=== PATIENT | female | born 1990 | race Two or more races ===

== ENCOUNTER 2023-04-23 22:10 | Emergency (ER) | payer SELFPAY ==
[~2023-04-23] VITALS: Ht 165.1 cm; Wt 99.3 kg
[2023-04-23 22:23] VITALS: BP 128/80
[2023-04-23 23:08] LABS: Urine Bacteria NONE SEEN /hpf (None Seen); Urine Blood TRACE /uL (Negative); Urine Specific Gravity 1.027 (1.001-1.035); Urine WBC 8 /hpf (0 - 5)
[2023-04-24] MEDS ORDERED: KETOROLAC TROMETH 30 MG/ML 1ML VIAL IM ONE
[2023-04-27] MEDS ORDERED: TRAM50TA2 PO (20:18)
== END 2023-04-24 01:35 | disposition home or self-care (01) ==
LOC: ER 22:10
DX: R51.9 Headache, unspecified (principal)
CPT/HCPCS: 70450; 81001; 81025; 96372; 99285; J1885

== ENCOUNTER 2023-04-26 18:44 | Emergency (ER) | payer MEDICAID, OTHER ==
[~2023-04-26] VITALS: Ht 165.1 cm; Wt 99.0 kg
[2023-04-26 20:54] VITALS: BP 140/89
[2023-04-26] MEDS ORDERED: ZOFR4T PO (21:26)
[2023-04-26] MEDS ORDERED: ACE3T PO (21:26)
[2023-04-26] MEDS ORDERED: KETOROLAC TROMETH 60MG/2ML VIAL IM ONE (21:30)
[2023-04-27] MEDS ORDERED: TRAM50TA2 PO (20:18)
== END 2023-04-26 21:53 | disposition home or self-care (01) ==
LOC: ER 18:44
DX: G43.909 Migraine, unspecified, not intractable, without status migrainosus (principal)
CPT/HCPCS: 81002; 81025; 96372; 99283; J1885

== ENCOUNTER 2024-02-15 21:34 | Emergency (ER) | payer MEDICAID ==
[~2024-02-15] VITALS: Ht 165.1 cm; Wt 110.0 kg
[2024-02-15 21:34] VITALS: BP 124/76; PULSE 96; RESP 20; O2SAT 96
[~2024-02-15 21:34] MED LIST: TRAM50TA2 PO; ZOFR4T PO
[2024-02-16] MEDS: KETOROLAC TROMETH 30 MG/ML 1ML VIAL IM ONE (00:30)
[2024-02-16] MEDS: BENZOCAINE (DENTAL) 20 % SPRAY 60ML MT ONE (00:35)
[2024-02-16] MEDS ORDERED: IBUP-1455 PO (00:44)
== END 2024-02-16 00:54 | disposition home or self-care (01) ==
LOC: ER 21:34
DX: K02.9 Dental caries, unspecified (principal)
CPT/HCPCS: 96372; 99283; J1885

== ENCOUNTER 2024-05-19 19:34 | Emergency (ER) | payer SELFPAY ==
[~2024-05-19] VITALS: Ht 165.1 cm; Wt 110.0 kg
[~2024-05-19 19:34] MED LIST changes: +IBUP-1455 PO
[2024-05-19 20:57] LABS: Urine Bacteria None Seen /hpf (None Seen)
[2024-05-19 21:02] LABS: Urine Blood Negative /uL (Negative); Urine Clarity Clear (Clear); Urine Color Yellow (Yellow); Urine Mucus FEW (None Seen); Urine Protein, UAD Negative (Negative); Urine Specific Gravity 1.031 (1.001-1.035); Urine Urobilinogen Normal (Negative); Urine WBC 18 /hpf (0 - 5)
[2024-05-19] MEDS ORDERED: CIPR-173 PO (21:32)
[2024-05-19 21:49] VITALS: BP 136/89; PULSE 93; RESP 18; TEMP 99; O2SAT 98
== END 2024-05-19 21:52 | disposition home or self-care (01) ==
LOC: ER 19:34
DX: N39.0 Urinary tract infection, site not specified (principal); Z79.899 Other long term (current) drug therapy; Z79.1 Long term (current) use of non-steroidal anti-inflammatories (NSAID)
CPT/HCPCS: 81001; 81025

== ENCOUNTER 2024-09-03 18:55 | Emergency (ER) | payer SELFPAY ==
[~2024-09-03] VITALS: Ht 165.1 cm; Wt 109.6 kg
[~2024-09-03 18:55] MED LIST changes: +CIPR-173 PO
[2024-09-03 19:31] LABS: Urine Bacteria None Seen /hpf (None Seen)
[2024-09-03 19:48] LABS: Urine Blood 1+ /uL (Negative); Urine Clarity Turbid (Clear); Urine Color Light-Yellow (Yellow); Urine Protein, UAD TRACE (Negative); Urine Specific Gravity 1.031 (1.001-1.035); Urine Urobilinogen 2 mg/dL (Negative); Urine WBC 42 /hpf (0 - 5)
[2024-09-03 20:02] LABS: Basophils # (auto) 0.1 10 ^3/uL (0-0.2); Basophils % (auto) 0.5 % (0.0-2.0); Eosinophils # (auto) 0.2 10 ^3/uL (0-0.8); Eosinophils % (auto) 2.4 % (0.0-7.0); Hematocrit 39.6 % (36.0-46.0); Lymphocytes # (auto) 2.9 10 ^3/uL (0.4-5.4); Lymphocytes % (auto) 29.3 % (10.0-50.0); Mean Corpuscular Hemoglobin 31.9 pg (28.0-32.0); Mean Corpuscular Hgb Conc. 35.3 g/dL (32.0-36.0); Mean Corpuscular Volume 90.4 fL (80.0-100.0); Monocytes # (auto) 0.6 10 ^3/uL (0-1.3); Monocytes % (auto) 6.2 % (0.0-12.0); Neutrophils % (auto) 61.6 % (37.0-80.0); Nucleated Red Blood Cells % 0.1 %; Platelet Count (auto) 297 10^3/uL (140-450); Red Blood Cells 4.39 10^6/uL (4.0-5.20); Red Cell Distribution Width 12.5 % (11.8-14.3); White Blood Cell 9.7 10^3/uL (4.4-10.8)
[2024-09-03 20:14] LABS: Chloride 106 mmol/L (98-107); Potassium 3.5 mmol/L (3.5-5.1); Sodium 140 mmol/L (136-145)
[2024-09-03 20:15] LABS: Anion Gap 8 (5-15); Carbon Dioxide 26 mmol/L (20-31)
[2024-09-03 20:18] LABS: INR 0.97 (0.9-1.15); Partial Thromboplastin Time 27.5 SEC (24.5-34.5); Prothrombin Time 10.3 sec (9.3-11.8)
[2024-09-03 20:20] LABS: BUN/Creatinine Ratio 15.5 (10.0-20.0); Blood Urea Nitrogen 9 mg/dL (9-23); Glucose 218 mg/dL (74-106)
--- NOTE | 2024-09-03 21:23 | DVH ---
Procedure: US OB ULTRASOUND COMP LESS 14WKS Study Date and Requested Time: 09/03/2024 08:27 PM Study Description: US OB ULTRASOUND COMP LESS 14WKS History: SPOTTING Comparison: None Technique: Multiple high resolution amaral-scale images obtained of the uterus, fetus, and other gestat ional components with M-mode scanning for evaluation of heart rate. Findings: No intrauterine is noted. Thickened endometrium at 20 mm. Uterus measures 9.7 x 7.3 x 5.1 cm in size with a suggested 1.1 cm fibroid. Cervical os appears close d. 0.2 cm nabothian cyst is noted Right ovary measures 2.9 x 1.8 x 2.6 cm with a 1.1 cm dominant follicle/ cyst. Left ovary measures 2. 5 x 2.1 x 2.5 cm with a 1.9 x 1.6 x 1.9 cm hypoechoic area with peripheral vascularity. Normal ovaria n color Doppler flow bilaterally. No evidence of free fluid in the cul-de-sac. Impression: No intrauterine is noted. An ectopic can not be excluded. Recommend correlation with beta hCG and ultrasound as clinically indicated. 1.9 x 1.6 x 1.9 cm left ovarian hypoechoic area with peripheral vascularity which may represent a cor pus luteal cyst with an ectopic not completely excluded. Thickened endometrium at 20 mm.
--- NOTE | 2024-09-03 21:39 | ED.PDOC ---
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 Pt began to notice pink vaginal spotting this morning and she is also experiencing suprapubic cramping. Pt took test at home on 08/25/2024 and result was positive. Pt states she is approximately 4wks with LMP 07/31/2024. . No known allergies. No fever, nausea, vomiting or abnormal discharge. Chief Complaint: Vaginal Discharge Time Seen by MD: 21:25 Reviewed Notes: Medications, Allergies Allergies: Coded Allergies: NO KNOWN ALLERGIES (Unverified , 04/23/23) Home Meds Active Scripts Ciprofloxacin Hcl (Cipro) 500 Mg Tab, 1 TAB PO BID, #14 TAB Prov:CECILIA EDGAR MD 05/19/24 Ibuprofen Micronized (Ibuprofen) 800 Mg Tab, 800 MG PO TIDPRN PRN, #20 TAB Prov:CRISTINA HOLLINS 02/16/24 Tramadol Hcl (Tramadol Hcl) 50 Mg Tab, 50 MG PO Q6HPRN, #8 TAB 0 Refills Prov:REYES RODRIGES 04/27/23 Ondansetron Odt 4MG Tab (ZOFRAN PO) 4 Mg Tb, 4 MG PO Q8HPRN, #14 TAB 0 Refills ODT TAB-DISSOLVE IN MOUTH, THEN SWALLOW Prov:REYES RODRIGES 04/26/23 Information Source: Patient Mode of Arrival: Ambulatory Timing: Hours Severity: Mild Vaginal Discharge: None Vaginal Lesions: None Bleeding Quality: Bright Red (pink) Vaginal Mass: None Onset Of Mass/Bleeding: Spontaneous Sexual Activity: Last Consensual [place]: Unknown Control: None History of: Current Blood Type: Unknown Symptoms of Possible : Missed Period Associated Signs and Symptoms: Vaginal Bleeding, Cramping Past Medical History PAST MEDICAL HISTORY: UTI'S Past Medical History (Other): Ectopic Surgical History: Denies all surgeries 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 , 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 Family History Family History: Reviewed,noncontributory to illness, No family hx of Cancer, No family hx of DM, No family hx of Heart deanne, No family hx of HTN, No family hx ofKidney deanne, No family hx of Liver deanne, No family hx of Lung deanne, No family hx of Stroke Social History Smoker: Non-Smoker Alcohol: Denies ETOH Use Drugs: Denies Drug Use Lives In: Home Constitutional: denies: chills, diaphoresis, fatigue, fever, malaise, sweats, weakness, others EENTM: denies: blurred vision, double vision, ear bleeding, ear discharge, ear drainage, ear pain, ear ringing, eye pain, eye redness, hearing loss, mouth pain, mouth swelling, nasal discharge, nose bleeding, nose congestion, nose pain, photophobia, tearing, throat pain, throat swelling, voice changes, others Respiratory: denies: cough, hemoptysis, orthopnea, SOB at rest, shortness of breath, SOB with excertion, stridor, wheezing, others Cardiovascular: denies: chest pain, dizzy spells, diaphoresis, Dyspnea on exertion, edema, irregular heart beat, left arm pain, lightheadedness, palpitations, PND, syncope, others Gastrointestinal: denies: abdomen distended, abdominal pain, blood streaked bowels, constipated, diarrhea, dysphagia, difficulty swallowing, hematemesis, melena, nausea, poor appetite, poor fluid intake, rectal bleeding, rectal pain, vomiting, others Genitourinary: reports: abnormal vagina bleeding, pain (suprapubic), ; denies: burning, dyspareunia, dysuria, flank pain, frequency, hematuria, incontinence, vagina discharge, urgency, others Neurological: denies: dizziness, fainting, headache, left sided numbness, left sided weakness, numbness, paresthesia, pre-existing deficit, right sided numbness, right sided weakness, seizure, speech problems, tingling, tremors, weakness, others Musculoskeletal: denies: back pain, gout, joint pain, joint swelling, muscle pain, muscle stiffness, neck pain, others Integumetry: denies: bruises, change in color, change in hair/nails, dryness, laceration, lesions, lumps, rash, wounds, others Allergic/Immunocompromised: denies: Difficulty Healing, Frequent Infections, Hives, Itching, others Hematologic/Lymphatic: denies: anemia, blood clots, easy bleeding, easy bruising, swollen glands, others Endocrine: denies: excessive hunger, excessive sweating, excessive thirst, excessive urination, flushing, intolerance to cold, intolerance to heat, unexplained weight gain, unexplained weight loss, others Psychiatric: denies: anxiety, bipolar disorder, depression, hopeless, panic disorder, schizophrenia, sleepless, suicidal, others All Other Systems: Reviewed and Negative Physical Exam General Appearance: No Apparent Distress HEENT: Normal ENT Inspection Neck: Full Range of Motion, Normal Inspection Respiratory: Lungs Clear, No Accessory Muscle Use, No Respiratory Distress, Normal Breath Sounds Cardiovascular: No Edema, No JVD, Regular Rate/Rhythm Breast Exam: Deferred Gastrointestinal: Soft, Suprapubic, Tenderness (mild. No rebound/guarding.) Genitalia: Deferred Pelvic: Deferred Rectal: Deferred Extremities: Normal inspection, Normal range of motion, Non-tender, No pedal edema Neurologic: Alert, No Motor Deficits, Normal Affect, Normal Mood, No Sensory Deficits Cerebellar Function: NOT DONE Reflexes: NOT DONE Skin: Dry, Normal Color, Warm Lymphatic: NOT DONE Was a procedure done? Was a procedure done?: No Differential Diagnosis (BARKING MACHINE FEEDER) Vaginal Bleeding: - Complete, - Incomplete, - In evitable, - Missed, - Threatened, Ectopic Mass / Lesion: PID Vaginal Discharge: UTI X-Ray, Labs, Meds, VS Vital Signs Date Time Temp Pulse Resp B/P (MAP) Pulse Ox O2 Delivery O2 Flow Rate FiO2 09/03/24 19:10 98.6 92 16 137/81 (99) 97 Lab Test 09/03/24 19:45 09/03/24 00:00 Range/Units White Blood Count 9.7 4.4-10.8 10^3/uL Red Blood Count 4.39 4.0-5.20 10^6/uL Hemoglobin 14.0 12.2-16.2 g/dL Hematocrit 39.6 36.0-46.0 % Mean Corpuscular Volume 90.4 80.0-100.0 fL Mean Corpuscular Hemoglobin 31.9 28.0-32.0 pg Mean Corpuscular Hemoglobin Concent 35.3 32.0-36.0 g/dL Red Cell Distribution Width 12.5 11.8-14.3 % Platelet Count 297 140-450 10^3/uL Mean Platelet Volume 8.5 6.9-10.8 fL Neutrophils (%) (Auto) 61.6 37.0-80.0 % Lymphocytes (%) (Auto) 29.3 10.0-50.0 % Monocytes (%) (Auto) 6.2 0.0-12.0 % Eosinophils (%) (Auto) 2.4 0.0-7.0 % Basophils (%) (Auto) 0.5 0.0-2.0 % Neutrophils # (Auto) 6.0 1.6-8.6 10 ^3/uL Lymphocytes # (Auto) 2.9 0.4-5.4 10 ^3/uL Monocytes # (Auto) 0.6 0-1.3 10 ^3/uL Eosinophils # (Auto) 0.2 0-0.8 10 ^3/uL Basophils # (Auto) 0.1 0-0.2 10 ^3/uL Nucleated Red Blood Cells 0.1 % Prothrombin Time 10.3 9.3-11.8 sec Prothrombin Time INR 0.97 0.9-1.15 Activated Partial Thromboplast Time 27.5 24.5-34.5 SEC Sodium Level 140 136-145 mmol/L Potassium Level 3.5 3.5-5.1 mmol/L Chloride Level 106 98-107 mmol/L Carbon Dioxide Level 26 20-31 mmol/L Anion Gap 8 5-15 Blood Urea Nitrogen 9 9-23 mg/dL Creatinine 0.58 0.550-1.02 mg/dL Glomerular Filtration Rate Calc 124 >90 mL/min BUN/Creatinine Ratio 15.5 10.0-20.0 Serum Glucose 218 H 74-106 mg/dL Calcium Level 10.0 8.7-10.4 mg/dL Beta HCG, Quantitative 48.9 H 1.5-4.2 mIU/mL Urine Color Light-yellow Yellow Urine Clarity Turbid H Clear Urine pH 7.0 5.0-9.0 Urine Specific [place]ott 1.031 1.001-1.035 Urine Protein Trace H Negative Urine Ketones Trace Negative Urine Blood 1+ H Negative /uL Urine Nitrite Negative Negative Urine Bilirubin Negative Negative Urine Urobilinogen 2 H Negative mg/dL Urine Leukocyte Esterase 3+ Negative /uL Urine RBC 21 0 - 4 /hpf Urine WBC 42 0 - 5 /hpf Urine Squamous Epithelial Cells Mod <5 /hpf Urine Bacteria None seen None Seen /hpf Urine Glucose 4+ H Normal mg/dL PROCEDURE(s): OB4US - OB ULTRASOUND COMP LESS 14WKS REASON: SPOTTING ORDER NUMBER(s): [id number], ACCESSION NUMBER(s): [id number] Procedure: US OB ULTRASOUND COMP LESS 14WKS Study Date and Requested Time: 09/03/2024 08:27 PM Study Description: US OB ULTRASOUND COMP LESS 14WKS History: SPOTTING Comparison: None Technique: Multiple high resolution amraal-scale images obtained of the uterus, fetus, and other gestational components with M-mode scanning for evaluation of heart rate. Findings: No intrauterine is noted. Thickened endometrium at 20 mm. Uterus measures 9.7 x 7.3 x 5.1 cm in size with a suggested 1.1 cm fibroid. Cervical os appears closed. 0.2 cm nabothian cyst is noted Right ovary measures 2.9 x 1.8 x 2.6 cm with a 1.1 cm dominant follicle/ cyst. Left ovary measures 2.5 x 2.1 x 2.5 cm with a 1.9 x 1.6 x 1.9 cm hypoechoic area with peripheral vascularity. Normal ovarian color Doppler flow bilaterally. No evidence of free fluid in the cul-de-sac. Impression: No intrauterine is noted. An ectopic can not be excluded. Recommend correlation with beta hCG and ultrasound as clinically indicated. 1.9 x 1.6 x 1.9 cm left ovarian hypoechoic area with peripheral vascularity which may represent a corpus luteal cyst with an ectopic not completely excluded. Thickened endometrium at 20 mm. X-Ray, Labs, Meds, VS Comment 33-year-old female G4, P1 with prior history of ectopic and miscarriage, currently approximately 4 weeks complaining of vaginal spotting and suprapubic cramping. Vitals unremarkable Exam remarkable for mild suprapubic tenderness to palpation. Nontender to percussion. No rebound or guarding. Ob ultrasound: Impression: No intrauterine is noted. An ectopic can not be excluded. Recommend correlation with beta hCG and ultrasound as clinically indicated. 1.9 x 1.6 x 1.9 cm left ovarian hypoechoic area with peripheral vascularity which may represent a corpus luteal cyst with an ectopic not completely excluded. Thickened endometrium at 20 mm. CBC unremarkable, basic metabolic panel remarkable for glucose 218, no other abnormalities of acute significance Serum quantitative hCG 48.9 UA abnormal consistent with UTI Patient treated with the following in the ED: Rocephin 1 g IM, Tylenol 1 g p.o. On re-evaluation exam is essentially unchanged. No acute hemorrhage. Hemodynamically stable. Vitals unremarkable. Hospitalization was considered, however the patient was well-appearing, hemodynamically stable and does not show any peritoneal signs. Patient appears stable for close outpatient follow-up with OBGYN for repeat serum quantitative hCG and repeat ultrasound. Patient will be referred to Dr. Pacheco. Rx Tylenol, Keflex Time of 1ST Reevaluation: 21:55 Reevaluation 1ST: Unchanged Time of 2ND Reevaluation: 22:02 Reevaluation 2ND: Improved Patient Education/Counseling: Diagnosis, Treatment Family Education/Counseling: No Family Present Departure 1 Departure Time of Disposition: 22:02 Impression: Primary Impression: Vaginal bleeding affecting early Disposition: 01 HOME / SELF CARE / HOMELESS Condition: Stable Referrals: JEREMY GANDHI DO Additional Instructions: Blood tests were essentially unremarkable. Your urine test showed you have a urinary tract infection. I have prescribed antibiotics and pain medication. Your serum quantitative hCG ( hormone level) was 48.9. Your ultrasound report is below. At this stage, it is too early to determine whether this is a normal early , and ectopic or a miscarriage. Follow-up with Dr. Gandhi (bag bleacher) in 1-2 days for repeat blood tests and ultrasound and further evaluation. Return immediately to ER for worsening pain, heavy bleeding, fever, vomiting or any other concern. [place] [id number] Ph: [phone] DIAGNOSTIC IMAGING Diagnostic Imaging Report : [id number] Signed PATIENT: PAULIE LUCIA ACCT: [id number] UNIT: [id number] : 1990 LOC: ER ROOM / BED: / AGE / SEX: 33 / F ADM STATUS: REG ER SERVICE 28 ORDERING PHYSICIAN: PATEL WADE MD PROCEDURE(s): OB4US - OB ULTRASOUND COMP LESS 14WKS REASON: SPOTTING ORDER NUMBER(s): [id number], ACCESSION NUMBER(s): [id number] Procedure: US OB ULTRASOUND COMP LESS 14WKS Study Date and Requested Time: 09/03/2024 08:27 PM Study Description: US OB ULTRASOUND COMP LESS 14WKS History: SPOTTING Comparison: None Technique: Multiple high resolution amaral-scale images obtained of the uterus, fetus, and other gestational components with M-mode scanning for evaluation of heart rate. Findings: No intrauterine is noted. Thickened endometrium at 20 mm. Uterus measures 9.7 x 7.3 x 5.1 cm in size with a suggested 1.1 cm fibroid. Cervical os appears closed. 0.2 cm nabothian cyst is noted Right ovary measures 2.9 x 1.8 x 2.6 cm with a 1.1 cm dominant follicle/ cyst. Left ovary measures 2.5 x 2.1 x 2.5 cm with a 1.9 x 1.6 x 1.9 cm hypoechoic area with peripheral vascularity. Normal ovarian color Doppler flow bilaterally. No evidence of free fluid in the cul-de-sac. Impression: No intrauterine is noted. An ectopic can not be excluded. Recommend correlation with beta hCG and ultrasound as clinically indicated. 1.9 x 1.6 x 1.9 cm left ovarian hypoechoic area with peripheral vascularity which may represent a corpus luteal cyst with an ectopic not completely excluded. Thickened endometrium at 20 mm. ATED BY: TARA YARBROUGH DO DICTATED DATE/TIME: 09/03/242119 SIGNED BY: TARA YARBROUGH DO SIGNED DATE/TIME: 09/03/242119 CC: e-Prescriptions Acetaminophen (Tylenol Extra Strength) 500 Mg Tab 1000 MG PO Q6HP PRN, #30 TAB Prov: PATEL WADE MD 09/03/24 Cephalexin Monohydrate (Cephalexin) 500 Mg Cap 1 CAP PO QID for 10 Days, #40 CAP Prov: PATEL WADE MD 09/03/24 Discharged With: Relative Critical Care Note Critical Care Time?: No Stability Stability form required: No Heart Score Heart Score: Heart Score Response (Comments) Value History N/A 0 EKG N/A 0 Age N/A 0 Risk Factors N/A 0 Troponin N/A 0 Total 0 I personally scribed for PATEL WADE MD ([email or web address]) on 09/03/24 at 21:39. Electronically submitted by Gail Mahan ([email or web address]). PATEL WADE MD Sep 03, 2024 21:39
[2024-09-03] MEDS ORDERED: ACET-1304 PO (22:07)
[2024-09-03] MEDS ORDERED: CEPH500C PO (22:07)
[2024-09-03 22:25] VITALS: BP 136/80; PULSE 78; RESP 18; TEMP 98.1; O2SAT 98
[2024-09-03] MEDS: ACETAMINOPHEN 500 MG TAB PO ONE (22:26)
[2024-09-03] MEDS: cefTRIAXone SOD 1,000 MG VL IM ONE (22:27)
== END 2024-09-03 22:33 | disposition home or self-care (01) ==
LOC: ER 18:55
DX: O20.9 Hemorrhage in early pregnancy, unspecified (principal); R10.2 Pelvic and perineal pain; O26.891 Other specified pregnancy related conditions, first trimester; Z3A.01 Less than 8 weeks gestation of pregnancy; Z87.440 Personal history of urinary (tract) infections; Z79.899 Other long term (current) drug therapy
CPT/HCPCS: 36415; 76801; 76817; 80048; 81001; 84702; 85025; 85610; 85730; 96372; 99285; J0696

== ENCOUNTER 2024-09-06 19:52 | Emergency (ER) | payer SELFPAY ==
[~2024-09-06] VITALS: Ht 165.1 cm; Wt 107.2 kg
[~2024-09-06 19:52] MED LIST changes: +ACET-1304 PO; +CEPH500C PO
[2024-09-06 20:20] VITALS: BP 118/85; PULSE 79; RESP 16; O2SAT 98
[2024-09-06 20:36] LABS: Urine Bacteria None Seen /hpf (None Seen)
[2024-09-06 21:01] LABS: Chloride 107 mmol/L (98-107); Potassium 3.5 mmol/L (3.5-5.1); Sodium 140 mmol/L (136-145)
[2024-09-06 21:02] LABS: Anion Gap 7 (5-15); Basophils # (auto) 0.1 10 ^3/uL (0-0.2); Basophils % (auto) 0.5 % (0.0-2.0); Carbon Dioxide 26 mmol/L (20-31); Eosinophils # (auto) 0.3 10 ^3/uL (0-0.8); Eosinophils % (auto) 2.3 % (0.0-7.0); Hematocrit 41.3 % (36.0-46.0); Hemoglobin 14.2 g/dL (12.2-16.2); Lymphocytes # (auto) 3.1 10 ^3/uL (0.4-5.4); Lymphocytes % (auto) 28.6 % (10.0-50.0); Mean Corpuscular Hemoglobin 31.2 pg (28.0-32.0); Mean Corpuscular Hgb Conc. 34.4 g/dL (32.0-36.0); Mean Corpuscular Volume 90.5 fL (80.0-100.0); Monocytes # (auto) 0.5 10 ^3/uL (0-1.3); Monocytes % (auto) 4.6 % (0.0-12.0); Nucleated Red Blood Cells % 0.2 %; Platelet Count (auto) 306 10^3/uL (140-450); Red Blood Cells 4.57 10^6/uL (4.0-5.20); Red Cell Distribution Width 12.4 % (11.8-14.3); White Blood Cell 10.9 10^3/uL (4.4-10.8)
[2024-09-06 21:03] LABS: Calcium 10.1 mg/dL (8.7-10.4)
[2024-09-06 21:07] LABS: BUN/Creatinine Ratio 15.2 (10.0-20.0); Blood Urea Nitrogen 10 mg/dL (9-23); Glucose 162 mg/dL (74-106)
--- NOTE | 2024-09-06 21:44 | ED.PDOC ---
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 Patient reports she is approximately 4 weeks , A2 and reports she was seen in ER here 3 days ago due to vaginal bleeding affecting early and was discharged home but states today her vaginal bleeding got worse with associated clots prompting her to come back to ER for further evaluation. Notes she currently is taking Keflex antibiotics for a UTI and has been taking Tylenol for her pain with slight relief. Reports she currently experiencing 8/10 pelvic cramping pain and presents to ER ambulatory on arrival, with steady gait, in no distress with vitals stable. States she does have history of one ectopic preg katia. Denies fever, body aches, chills, shortness of breath, chest pain, palpitations, abdominal pain, back/flank pain, dysuria or any further symptoms/complaints Chief Complaint: Vaginal Bleed Time Seen by MD: 19:55 Primary Care Provider: UNKNOWN Reviewed Notes: Nurses Notes, Medications, Allergies Allergies: Coded Allergies: NO KNOWN ALLERGIES (Unverified , 04/23/23) Home Meds Active Scripts Acetaminophen (Tylenol Extra Strength) 500 Mg Tab, 1000 MG PO Q6HP PRN, #30 TAB Prov:PATEL WADE MD 09/03/24 Cephalexin Monohydrate (Cephalexin) 500 Mg Cap, 1 CAP PO QID for 10 Days, #40 CAP Prov:PATEL WADE MD 09/03/24 Ciprofloxacin Hcl (Cipro) 500 Mg Tab, 1 TAB PO BID, #14 TAB Prov:CECILIA EDGAR MD 05/19/24 Ibuprofen Micronized (Ibuprofen) 800 Mg Tab, 800 MG PO TIDPRN PRN, #20 TAB Prov:CRISTINA HOLLINS 02/16/24 Tramadol Hcl (Tramadol Hcl) 50 Mg Tab, 50 MG PO Q6HPRN, #8 TAB 0 Refills Prov:REYES RODRIGES 04/27/23 Ondansetron Odt 4MG Tab (ZOFRAN PO) 4 Mg Tb, 4 MG PO Q8HPRN, #14 TAB 0 Refills ODT TAB-DISSOLVE IN MOUTH, THEN SWALLOW Prov:REYES RODRIGES 04/26/23 Information Source: Patient Past Medical History PAST MEDICAL HISTORY: UTI'S Surgical History (Other): D&C 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 , 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 Family History Family History: Unknown Social History Smoker: Non-Smoker Alcohol: Denies ETOH Use Drugs: Denies Drug Use Lives In: Home Constitutional: denies: chills, diaphoresis, fatigue, fever, malaise, sweats, weakness, others EENTM: denies: blurred vision, double vision, ear bleeding, ear discharge, ear drainage, ear pain, ear ringing, eye pain, eye redness, hearing loss, mouth pain, mouth swelling, nasal discharge, nose bleeding, nose congestion, nose pain, photophobia, tearing, throat pain, throat swelling, voice changes, others Respiratory: denies: cough, hemoptysis, orthopnea, SOB at rest, shortness of breath, SOB with excertion, stridor, wheezing, others Cardiovascular: denies: chest pain, dizzy spells, diaphoresis, Dyspnea on exertion, edema, irregular heart beat, left arm pain, lightheadedness, palpitations, PND, syncope, others Gastrointestinal: denies: abdomen distended, abdominal pain, blood streaked bowels, constipated, diarrhea, dysphagia, difficulty swallowing, hematemesis, melena, nausea, poor appetite, poor fluid intake, rectal bleeding, rectal pain, vomiting, others Genitourinary: reports: others (As stated in HPI) Neurological: denies: dizziness, fainting, headache, left sided numbness, left sided weakness, numbness, paresthesia, pre-existing deficit, right sided numbness, right sided weakness, seizure, speech problems, tingling, tremors, weakness, others Musculoskeletal: denies: back pain, gout, joint pain, joint swelling, muscle pain, muscle stiffness, neck pain, others Integumetry: denies: bruises, change in color, change in hair/nails, dryness, laceration, lesions, lumps, rash, wounds, others Allergic/Immunocompromised: denies: Difficulty Healing, Frequent Infections, Hives, Itching, others Hematologic/Lymphatic: denies: anemia, blood clots, easy bleeding, easy bruising, swollen glands, others Endocrine: denies: excessive hunger, excessive sweating, excessive thirst, excessive urination, flushing, intolerance to cold, intolerance to heat, unexplained weight gain, unexplained weight loss, others Psychiatric: denies: anxiety, bipolar disorder, depression, hopeless, panic disorder, schizophrenia, sleepless, suicidal, others Physical Exam General Appearance: No Apparent Distress HEENT: PERRL/EOMI Neck: Full Range of Motion, Non-Tender, Normal Respiratory: Chest Non-Tender, Lungs Clear, No Accessory Muscle Use, No Respiratory Distress, Normal Breath Sounds Cardiovascular: No Murmur, No Gallop, Regular Rate/Rhythm Breast Exam: Deferred Gastrointestinal: No Organomegaly, No Pulsatile Mass, Normal Bowel Sounds, Soft, Other (Slight TTP diffuse to pelvic region noted. No rebound/guarding noted. No TTP to abdomen noted) Genitalia: Deferred Pelvic: Deferred Rectal: Deferred Extremities: Normal capillary refill, Normal range of motion Neurologic: Alert, assistant principal II-XII nml as Tested, No Motor Deficits, Normal Affect, Normal Mood, No Sensory Deficits Cerebellar Function: Normal Reflexes: Normal Skin: Dry, Normal Color, Warm Peripheral Pulses: 2+ Radial (R), 2+ Radial (L), 2+ Brachial (R), 2+ Brachial (L) Lymphatic: No Adenopathy Was a procedure done? Was a procedure done?: No Sedation Sedation?: No Differential Diagnosis (IT ADMINISTRATIVE ASSISTANT) Vaginal Bleeding: - Incomplete, Ectopic , Placenta Previa, Precipitous Hct X-Ray, Labs, Meds, VS Vital Signs Date Time Temp Pulse Resp B/P (MAP) Pulse Ox O2 Delivery O2 Flow Rate FiO2 09/06/24 21:36 Room Air* 0 21 09/06/24 20:20 98.5 79 16 118/85 (96) 98 Lab Test 09/06/24 20:34 Range/Units White Blood Count 10.9 H 4.4-10.8 10^3/uL Red Blood Count 4.57 4.0-5.20 10^6/uL Hemoglobin 14.2 12.2-16.2 g/dL Hematocrit 41.3 36.0-46.0 % Mean Corpuscular Volume 90.5 80.0-100.0 fL Mean Corpuscular Hemoglobin 31.2 28.0-32.0 pg Mean Corpuscular Hemoglobin Concent 34.4 32.0-36.0 g/dL Red Cell Distribution Width 12.4 11.8-14.3 % Platelet Count 306 140-450 10^3/uL Mean Platelet Volume 8.7 6.9-10.8 fL Neutrophils (%) (Auto) 64.0 37.0-80.0 % Lymphocytes (%) (Auto) 28.6 10.0-50.0 % Monocytes (%) (Auto) 4.6 0.0-12.0 % Eosinophils (%) (Auto) 2.3 0.0-7.0 % Basophils (%) (Auto) 0.5 0.0-2.0 % Neutrophils # (Auto) 7.0 1.6-8.6 10 ^3/uL Lymphocytes # (Auto) 3.1 0.4-5.4 10 ^3/uL Monocytes # (Auto) 0.5 0-1.3 10 ^3/uL Eosinophils # (Auto) 0.3 0-0.8 10 ^3/uL Basophils # (Auto) 0.1 0-0.2 10 ^3/uL Nucleated Red Blood Cells 0.2 % Urine Color Brown H Yellow Urine Clarity Ex.turbid Clear Urine pH 5.5 5.0-9.0 Urine Specific [place] 1.038 H 1.001-1.035 Urine Protein 1+ H Negative Urine Ketones 1+ H Negative Urine Blood 3+ H Negative /uL Urine Nitrite Negative Negative Urine Bilirubin Negative Negative Urine Urobilinogen Normal Negative mg/dL Urine Leukocyte Esterase 1+ Negative /uL Urine RBC 3521 0 - 4 /hpf Urine WBC 17 0 - 5 /hpf Urine Squamous Epithelial Cells Few <5 /hpf Urine Calcium Oxalate Crystals Mod None Seen Urine Bacteria None seen None Seen /hpf Urine Glucose Normal Normal mg/dL Urine Test Negative Negative Sodium Level 140 136-145 mmol/L Potassium Level 3.5 3.5-5.1 mmol/L Chloride Level 107 98-107 mmol/L Carbon Dioxide Level 26 20-31 mmol/L Anion Gap 7 5-15 Blood Urea Nitrogen 10 9-23 mg/dL Creatinine 0.66 0.550-1.02 mg/dL Glomerular Filtration Rate Calc 120 >90 mL/min BUN/Creatinine Ratio 15.2 10.0-20.0 Serum Glucose 162 H 74-106 mg/dL Calcium Level 10.1 8.7-10.4 mg/dL Beta HCG, Quantitative 7.2 H 1.5-4.2 mIU/mL PATIENT: BRYANT OBIELAKESHIA ROCHAYACCT: [id number]: [id number] : 1990 LOC: ER ROOM / BED: / AGE / SEX: 33 / F ADM STATUS: REG ER SERVICE 12 ORDERING PHYSICIAN: REYES RODRIGES PROCEDURE(s): OB4US - OB ULTRASOUND COMP LESS 14WKS REASON: 4 weeks , vaginal bleeding/pelvic pain ORDER NUMBER(s): [id number], ACCESSION NUMBER(s): [id number] OB ULTRASOUND <14 WEEKS: HISTORY: 4 weeks , vaginal bleeding/pelvic pain TECHNIQUE: Multiple real-time grayscale sonographic images of the pelvis with duplex Doppler color flow, spectral and M-mode analysis. TRANSDUCERS: C1-4 COMPARISON: US OB ULTRASOUND COMP LESS 14WKS on DOS: 09/03/24 FINDINGS: The uterus measures 9.9 x 6.3 x 4.6 cm. Endometrium measures up to 5 mm. The cervix closed Right ovary measures 2.9 x 2.3 x 2.9 cm with normal Doppler color flow. Left ovary was not visualized. No intrauterine was seen at this time. IMPRESSION: 1. No intrauterine seen at this time. 2. No acute abnormality detected. ATED BY: QUINN HUTSON MD DICTATED DATE/TIME: 09/06/242218 SIGNED BY: QUINN HUTSON MD SIGNED DATE/TIME: 09/06/242218 CC: CBC reviewed- without any significant abnormalities BMP reviewed without any significant abnormalities Beta HCG reviewed- 7.2 Previous beta HCG from 09-03-20 reviewed- 48.9 Urinalysis reviewed-urine leukocyte esterase 1+, urine blood 3+, urine ketones 1+, urine protein 1+ Urine reviewed-negative Pelvic ultrasound reviewed Patient refused Tylenol in ER for her pain Previous ER chart was reviewed All lab/imaging results were reviewed and discussed with patient in full details. Patient verbalized understanding Patient reported improvement in symptoms, hemodynamically stable and in no distress during ER visit/prior to discharge Advised to drink plenty of fluids Advised on rest/no strenuous activity Advised to continue Tylenol for pain and Keflex antibiotics as prescribed Patient provided information with regards to local PCPs and OBGYNs and advised to follow up in 1-2 days Patient alert and oriented x4 prior to discharge. Patient verbalized understanding and agreeable with current plan of care Advised to return to ER immediately if symptoms worsen Time of 1ST Reevaluation: 21:52 Reevaluation 1ST: N/A Patient Education/Counseling: Diagnosis, Treatment, Prognosis, Need For Follow Up Family Education/Counseling: No Family Present Departure 1 Departure Time of Disposition: 22:12 Impression: Primary Impression: Miscarriage Additional Impression: UTI (urinary tract infection) Qualified Codes: N30.01 - Acute cystitis with hematuria Disposition: HOME / SELF CARE / HOMELESS Condition: Stable Discharged With: Friend Critical Care Note Critical Care Time?: No Stability Stability form required: No Heart Score Heart Score: Heart Score Response (Comments) Value History N/A 0 EKG N/A 0 Age N/A 0 Risk Factors N/A 0 Troponin N/A 0 Total 0 REYES RODRIGES Sep 06, 2024 21:44
[2024-09-06 21:49] LABS: Urine Blood 3+ /uL (Negative); Urine Clarity Ex.Turbid (Clear); Urine Color Brown (Yellow); Urine Protein, UAD 1+ (Negative); Urine Specific Gravity 1.038 (1.001-1.035); Urine Urobilinogen Normal (Negative); Urine WBC 17 /hpf (0 - 5); Urine pH 5.5 (5.0-9.0)
--- NOTE | 2024-09-06 22:22 | DVH ---
OB ULTRASOUND <14 WEEKS: HISTORY: 4 weeks , vaginal bleeding/pelvic pain TECHNIQUE: Multiple real-time grayscale sonographic images of the pelvis with duplex Doppler color f low, spectral and M-mode analysis. TRANSDUCERS: C1-4 COMPARISON: US OB ULTRASOUND COMP LESS 14WKS on DOS: 09/03/24 FINDINGS: The uterus measures 9.9 x 6.3 x 4.6 cm. Endometrium measures up to 5 mm. The cervix closed Right ovary measures 2.9 x 2.3 x 2.9 cm with normal Doppler color flow. Left ovary was not visualized. No intrauterine was seen at this time. IMPRESSION: 1. No intrauterine seen at this time. 2. No acute abnormality detected.
== END 2024-09-06 22:28 | disposition home or self-care (01) ==
LOC: ER 19:52
DX: O02.1 Missed abortion (principal); N39.0 Urinary tract infection, site not specified; Z79.899 Other long term (current) drug therapy; Z98.890 Other specified postprocedural states
CPT/HCPCS: 36415; 76801; 80048; 81001; 81025; 84702; 85025